=== PATIENT | female | born 1995 | race Caucasian/White ===

== ENCOUNTER 2018-04-23 15:06 | Outpatient (CLI) | payer BC ==
--- NOTE | 2018-04-23 17:31 | ULT ---
ULTRASOUND PELVIC TRANSVAGINAL WITH DOPPLER: 04/23/18 HISTORY: Pelvic pain. COMPARISON: None. FINDINGS: Real time gomez scale color doppler with spectral analysis of the uterus was performed transabdominal and transvaginal approach. The uterus measures 8.8 x 3 x 4.3 cm. Endometrial thickness is 6 mm. Right ovary measures 2.6 x 1.3 x 2 cm and left ovary measures 3.8 x 1.4 x 2.4 cm. Adequate vascular flow t o both ovaries. There is a 2.9 cm round heterogeneous likely a fibroid measuring 2.9 cm left uterine body. IMPRESSION: 1. Likely a 2.9 cm round left uterine body fibroid. 2. Adequate flow to both ovaries. 3. Normal appearance of the endometrium. POS: [facility]
== END 2018-04-23 15:07 | disposition home or self-care (01) ==
LOC: SCSULT 15:06
PROVIDERS: ATTEND Physician Assistant
DX: R10.2 Pelvic and perineal pain (principal)
CPT/HCPCS: 76856

== ENCOUNTER 2021-12-09 14:32 | Emergency (ER) | payer BC ==
[2021-12-09] MEDS ORDERED: Ondansetron PF 4 MG/2 ML Vial ONE (14:43)
[2021-12-09] MEDS ORDERED: Morphine 4 MG/ML VIAL ONE (15:07)
[2021-12-09 15:11] LABS: #Basophils 0.1 thou/uL (0.0-0.2); #Eosinphils 0.1 thou/uL (0.0-0.7); #Lymphocytes 2.3 thou/uL (1.20-3.40); #Monocytes 0.6 thou/uL (0.11-0.59); #Neutrophils 6.8 thou/uL (1.40-6.50); %Basophils 0.7 % (0.0-1.0); %Eosinophils 1.2 % (0.0-10.0); %Lymphocytes 23.1 % (21.0-51.0); Hemoglobin 16.4 g/dL (12.0-16.0); Mean Corpuscular HGB CONC 33.7 g/dL (32.0-36.0); Mean Corpuscular Hemoglobin 33.5 pg (27.0-31.0); Mean Corpuscular Volume 99.6 fL (78.0-98.0); Mean Platelet Volume 8.2 fL (7.4-10.4); Platelet Count 272 thou/uL (130-400); RBC Distribution Width 12.2 % (11.5-14.5); Red Blood Cell (RBC) Count 4.89 mill/uL (4.20-5.40); White Blood Cell (WBC) Count 9.9 thou/uL (4.8-10.8)
[2021-12-09 15:17] LABS: BHCG - Serum Negative (NEGATIVE); Pregs Control Background? CLEAR/WHITE (CLR/WHITE); Pregs Control Bar Appear? YES (CONTROL BAR)
[2021-12-09 15:33] LABS: ALT (SGPT) 27 U/L (8-55); AST (SGOT) 31 U/L (5-34); Albumin 3.6 g/dL (3.5-5.0); Alkaline Phosphatase 56 U/L (40-110); Anion Gap 13 mmol/L (10-20); BUN (Urea Nitrogen) 9 mg/dL (7.0-18.7); Bilirubin, Total 0.5 mg/dL (0.2-1.2); Calc. Creatinine Clearance 0 mL/min (70-130); Calcium 8.7 mg/dL (7.8-10.44); Carbon Dioxide 22 mmol/L (22-29); Chloride 107 mmol/L (98-107); Estimated GFR 93; Globulin 2.3 g/dL (2.4-3.5); Glucose 86 mg/dL (70-105); Lipase 21 U/L (8-78); Potassium 4.3 mmol/L (3.5-5.1); Protein, Total 5.9 g/dL (6.0-8.3); Sodium 138 mmol/L (136-145)
[2021-12-09] MEDS ORDERED: GASTROGRAFIN 30 ML BOT ONE (15:53)
[2021-12-09] MEDS ORDERED: Iopamidol-370 76% 500 ML 1 ML ONE (15:53)
[2021-12-09 16:27] LABS: Bacteria/HPF None Seen HPF (None Seen); Bilirubin Negative (Negative); Blood, Urine Trace (Negative); Clarity Clear (Clear); Glucose, Urine (Dipstick) Normal (Negative); Ketone, Urine Negative (Negative); Leukocyte Negative Leu/uL (Negative); Nitrite Negative (Negative); Protein, Urine (Dipstick) Negative (Neg-Trace); RBC/HPF 0-3 HPF (0-3); Specific Gravity, Urine 1.008 (1.002-1.036); Squamous Epithelial 0-3 HPF (0-3); Urobilinogen Normal mg/dL (Less than 2); WBC/HPF None Seen HPF (0-3)
[2021-12-09] MEDS ORDERED: Ketorolac Tromethamine 30 MG/ML VIAL ONE (16:52)
== END 2021-12-09 17:50 | disposition home or self-care (01) ==
LOC: ERS 14:32
DX: E28.2 Polycystic ovarian syndrome (principal)
CPT/HCPCS: 74177; 80053; 81003; 81015; 83690; 84703; 85025; 96374; 96375; J1885; J2270; J2405; Q9963; Q9967